=== PATIENT | male | born 1965 | race Caucasian/White ===

== ENCOUNTER 2023-09-04 13:11 | Outpatient (CLI) | payer BC | END 2023-09-04 13:12 | disposition home or self-care (01) | LOC: SCSMRI 13:11 | PROVIDERS: ATTEND Family Medicine Sports Medicine | DX: M25.561 Pain in right knee (principal); S83.241A Other tear of medial meniscus, current injury, right knee, initial encounter ==

== ENCOUNTER 2023-10-12 07:50 | Outpatient (CLI) | payer BC ==
[2023-10-12 08:55] LABS: #Basophils 0.1 10x3/uL (0.0-0.2); #Eosinphils 0.2 10x3/uL (0.0-0.5); #Monocytes 0.5 10x3/uL (0.0-1.1); #Neutrophils 4.7 10x3/uL (1.5-8.4); %Basophils 0.8 % (0.0-2.0); %Lymphocytes 17.9 % (18.0-47.0); %Monocytes 7.4 % (0.0-10.0); %Neutrophils 70.6 % (40.0-75.0); Anion Gap 13 mmol/L (10-20); BUN (Urea Nitrogen) 15 mg/dL (8.4-25.7); Calc. Creatinine Clearance 0 mL/min (70-130); Calcium 9.3 mg/dL (7.8-10.44); Carbon Dioxide 26 mmol/L (22-29); Chloride 106 mmol/L (98-107); Estimated GFR 98; Glucose 108 mg/dL (70-105); Hematocrit 43.3 % (38.8-50.0); Hemoglobin 15.1 g/dL (13.5-17.5); Mean Corpuscular HGB CONC 34.9 g/dL (32.0-36.0); Mean Corpuscular Hemoglobin 30.1 pg (27.0-33.0); Mean Corpuscular Volume 86.3 fl (81.2-95.1); Mean Platelet Volume 13.3 fl (7.4-10.4); Platelet Count 146 10x3/uL (150-450); Potassium 4.8 mmol/L (3.5-5.1); RBC Distribution Width 12.2 % (11.5-14.5); Red Blood Cell (RBC) Count 5.02 10x6/uL (4.32-5.72); Sodium 140 mmol/L (136-145); White Blood Cell (WBC) Count 6.6 10x3/uL (3.5-10.5)
== END 2023-10-12 07:51 | disposition home or self-care (01) ==
LOC: LABBT 07:50
PROVIDERS: ATTEND Orthopaedic Surgery
DX: Z01.818 Encounter for other preprocedural examination (principal); M23.321 Other meniscus derangements, posterior horn of medial meniscus, right knee
CPT/HCPCS: 80048; 85025; 93005; 93010

== ENCOUNTER 2023-10-18 08:10 | Day surgery (SDC) | payer BC ==
[2023-10-12 08:28] VITALS: BMI 34.4
[2023-10-18] MEDS ORDERED: Sodium Chloride 0.9% 100 ML ONE ×2 (08:44→11:33)
[2023-10-18] MEDS ORDERED: Tranexamic Acid 1,000 MG/10 ML VIAL ONE (08:44)
[2023-10-18] MEDS ORDERED: Vancomycin (BATCH) 1.5 GM/300 ML BAG ONE (08:44)
[2023-10-18] MEDS ORDERED: PROPOFOL 20 ML ONE ×2 (08:49→10:23)
[2023-10-18] MEDS ORDERED: Bupivacaine PF 0.5% 30 ML VIAL ONE (08:49)
[2023-10-18] MEDS ORDERED: Lidocaine 2% PF 5 ML VIAL ONE (08:49)
[2023-10-18] MEDS ORDERED: fentaNYL 50 mcg/mL 1 mL Vial ONE (10:23)
[2023-10-18] MEDS ORDERED: PHENYLEPHRINE-NS 100 MCG/ML 10 ML SYRINGE ONE (10:25)
[2023-10-18] MEDS ORDERED: CEFAZOLIN 2 GM VIAL ONE (11:33)
[2023-10-18] MEDS ORDERED: Bupivacaine HCl 0.5%/Epinephrine 1:200,000/PF 30 ml Vial ONE (11:50)
[2023-10-18] MEDS ORDERED: Lidocaine 1% PF 5 ML VIAL ONE (11:50)
[2023-10-18] MEDS ORDERED: Ondansetron PF 4 MG/2 ML Vial ONE (11:59)
[2023-10-18] MEDS ORDERED: Dexamethasone 4 mg/ml Vial ONE (11:59)
== END 2023-10-18 13:05 | disposition home or self-care (01) ==
LOC: SDC 08:10
PROVIDERS: ATTEND Orthopaedic Surgery
PROC: 0SBC4ZZ Excision of Right Knee Joint, Percutaneous Endoscopic Approach (ICD-10-PCS; principal; 2023-10-18)
DX: M23.321 Other meniscus derangements, posterior horn of medial meniscus, right knee (principal)
CPT/HCPCS: J0665; J1100; J2001; J2405; J2704; J3010; J3370; J3490